=== PATIENT | female | born 1985 | race Caucasian/White ===

== ENCOUNTER 2017-05-28 21:47 | Emergency (ER) | payer SELFPAY ==
[~2017-05-28] VITALS: Ht 157.5 cm; Wt 90.7 kg
[~2017-05-28 21:47] MED LIST: FERR-142 PO; PREN-385 PO
[2017-05-28 22:02] VITALS: BP 172/111
--- NOTE | 2017-05-28 22:10 | NUR ---
AMBULATED TO ER BED 6
--- NOTE | 2017-05-28 22:15 | NUR ---
PATIENT IS A 32 Y/O FEMALE WHO PRESENTS TO THE ED C/O HIGH BLOOD PRESSURE. PT STATES, "I WASN'T FEELING GOOD EARLIER." PT DENIES PAIN. PT REPORTS NAUSEA AND VOMITING X2 EPISODES, DENIES DIARRHEA. PT DENIES CP, SOB. LUNG SOUNDS CLEAR BILATERALLY. PT AAOX4, RR EVEN/UNLABORED, SKIN IS COOL/DRY. PT REPOSITIONED FOR COMFORT, BED IN LOWEST POSITION. ER MD DR. LOWE NOTIFIED. WILL CONTINUE TO MONITOR.
[2017-05-28] MEDS ORDERED: MECLIZINE 25 MG TAB PO ONE (22:45)
[2017-05-28 23:30] VITALS: BP 150/98
--- NOTE | 2017-05-28 23:30 | NUR ---
Patient discharged with v/s stable. Written and verbal after care instructions given and explained. Patient alert, oriented and verbalized understanding of instructions. Ambulatory with steady gait. All questions addressed prior to discharge. ID band removed. Patient advised to follow up with PMD. Rx of MECLIZINE 25 MG given. Patient educated on indication of medication including possible reaction and side effects. Opportunity to ask questions provided and answered.
== END 2017-05-28 23:30 | disposition home or self-care (01) ==
LOC: MED 21:47
DX: R42 Dizziness and giddiness (principal); R11.2 Nausea with vomiting, unspecified; I10 Essential (primary) hypertension
CPT/HCPCS: 70450; 99284; J8597

== ENCOUNTER 2024-04-17 19:39 | Emergency (ER) | payer OTHER ==
[~2024-04-17] VITALS: Ht 157.5 cm; Wt 106.6 kg
[2024-04-17 19:54] VITALS: BP 194/103; PULSE 87; RESP 18; TEMP 98.1; O2SAT 99
[2024-04-17 20:10] VITALS: O2SAT 99
[2024-04-17] MEDS: IBUPROFEN 600 MG TAB PO ONE (20:26)
[2024-04-17] MEDS: ACETAMINOPHEN EXTRA STRENGTH 500 MG TAB PO ONE (20:27)
[2024-04-17 21:59] VITALS: BP 155/73; PULSE 79; RESP 14; O2SAT 98
[2024-04-17] MEDS ORDERED: IBUP-2218 PO (22:06)
== END 2024-04-17 22:15 | disposition home or self-care (01) ==
LOC: MED 19:39
DX: I10 Essential (primary) hypertension (principal); B34.9 Viral infection, unspecified; Z91.148 Patient's other noncompliance with medication regimen for other reason; Z79.899 Other long term (current) drug therapy
CPT/HCPCS: 99283